=== PATIENT | female | born 1950 | race Caucasian/White ===

== ENCOUNTER 2021-04-15 04:18 | Outpatient (CLI) | payer BC, SELFPAY | END 2021-04-15 04:19 | disposition home or self-care (01) | LOC: DS 04:18 | PROVIDERS: PCP Internal Medicine; Visit Provider Dietitian, Registered ==

== ENCOUNTER 2021-06-03 11:50 | Outpatient (REF) | payer BC, SELFPAY | END 2021-06-03 11:51 | disposition home or self-care (01) | LOC: LBO 11:50 | PROVIDERS: PCP Internal Medicine; Visit Provider Nurse Practitioner Family ==

== ENCOUNTER 2021-06-03 17:18 | Outpatient (REF) | payer BC, SELFPAY ==
[2021-06-03 10:20] LABS: Source Nasal/Nares
[2021-06-03 11:14] LABS: COVID-19 PCR POSITIVE (Negative)
== END 2021-06-03 17:19 | disposition home or self-care (01) ==
LOC: LBN 17:18
PROVIDERS: PCP Internal Medicine; Visit Provider Nurse Practitioner Family
DX: Z20.822 Contact with and (suspected) exposure to COVID-19 (principal)
CPT/HCPCS: 87635

== ENCOUNTER 2022-11-12 12:49 | Outpatient (CLI) | payer BC, OTHER, SELFPAY ==
[2022-11-12 15:11] LABS: ALT 25 U/L (14-59); AST 17 U/L (15-37); Albumin 3.5 g/dL (3.4-5.0); Alkaline Phosphatase 80 U/L (46-116); Bilirubin, Direct 0.1 mg/dL (0.0-0.2); Bilirubin, Total 0.4 mg/dL (0.2-1.0); Total Protein 6.6 g/dL (6.4-8.2)
== END 2022-11-12 12:50 | disposition home or self-care (01) ==
LOC: LBO 12:52
PROVIDERS: PCP Internal Medicine; Visit Provider Nurse Practitioner
DX: Z79.899 Other long term (current) drug therapy (principal)
CPT/HCPCS: 36415; 80076

== ENCOUNTER 2023-03-09 04:45 | Outpatient (CLI) | payer OTHER, BC, SELFPAY ==
[2023-03-09 12:40] LABS: Abs Immature Grans 0.01 10^3/uL (0.0-0.06); Absolute Basophil Count 0.04 10^3/uL (0.0-0.2); Absolute Lymphocyte Count 1.85 10^3/uL (1.2-3.4); Absolute Monocyte Count 0.57 10^3/uL (0.1-0.8); Absolute Neutrophil Count 3.02 10^3/uL (1.2-6.7); Basophils % 0.7; Eosinophils % 1.8; HCT 36.4 % (36.0-46.0); HGB 12.3 g/dL (11.2-15.7); Immature Grans % 0.2; Lymphocytes % 33.1; MCH 32.6 pg (27.0-33.0); MCHC 33.8 % (32.0-36.0); MCV 97 fL (80-95); MPV 11.7 fL (8.0-11.0); Monocytes % 10.2; Platelet Count 204 10^3/uL (130-400); RBC 3.77 10^6/uL (3.93-5.22); RDW 12.8 % (11.7-14.6); RDW-SD 45.3 fL; WBC 5.59 10^3/uL (4.4-10.8)
[2023-03-09 12:41] LABS: ESR 2 mm/hr (0-30)
[2023-03-09 13:09] LABS: ALT 18 U/L (14-59); AST 17 U/L (15-37); Albumin 3.4 g/dL (3.4-5.0); Alkaline Phosphatase 84 U/L (46-116); Anion Gap 2.7 mmol/L (3-11); BUN 15 mg/dL (7-18); Bilirubin, Total 0.3 mg/dL (0.2-1.0); C-Reactive Protein 0.25 mg/dL (0.0-0.3); CO2 30.3 mmol/L (21.0-32.0); CREATININE 0.6 mg/dL (0.55-1.02); Calcium 8.8 mg/dL (8.5-10.1); Chloride 100 mmol/L (98-107); Glucose 92 mg/dL (74-106); Potassium 3.7 mmol/L (3.5-5.1); Sodium 133 mmol/L (136-145); Total Protein 6.9 g/dL (6.4-8.2)
== END 2023-03-09 04:46 | disposition home or self-care (01) ==
LOC: LBO 04:45
PROVIDERS: PCP Internal Medicine; Visit Provider Nurse Practitioner
DX: Z79.899 Other long term (current) drug therapy (principal); M19.91 Primary osteoarthritis, unspecified site
CPT/HCPCS: 36415; 80053; 85652; 85025; 86140

== ENCOUNTER 2023-07-28 20:03 | Outpatient (CLI) | payer OTHER, SELFPAY ==
[2023-07-28 15:40] LABS: Abs Immature Grans 0.02 10^3/uL (0.0-0.06); Absolute Basophil Count 0.04 10^3/uL (0.0-0.2); Absolute Eosinophil Count 0.06 10^3/uL (0.0-0.7); Absolute Lymphocyte Count 2.34 10^3/uL (1.2-3.4); Absolute Monocyte Count 0.46 10^3/uL (0.1-0.8); Absolute Neutrophil Count 3.02 10^3/uL (1.2-6.7); Basophils % 0.7 %; HCT 35.4 % (36.0-46.0); HGB 12.4 g/dL (11.2-15.7); Immature Grans % 0.3 %; Lymphocytes % 39.4 %; MCH 34.2 pg (27.0-33.0); MCV 98 fL (80-95); MPV 11.2 fL (8.0-11.0); Monocytes % 7.7 %; Neutrophils % 50.9 %; Platelet Count 202 10^3/uL (130-400); RBC 3.63 10^6/uL (3.93-5.22); RDW-SD 46.1 fL; WBC 5.94 10^3/uL (4.4-10.8)
[2023-07-28 15:42] LABS: ESR 2 mm/hr (0-30)
[2023-07-28 16:50] LABS: ALT 22 U/L (14-59); AST 16 U/L (15-37); Albumin 3.5 g/dL (3.4-5.0); Alkaline Phosphatase 93 U/L (46-116); Anion Gap 5.6 mmol/L (3-11); BUN 24 mg/dL (7-18); Bilirubin, Total 0.5 mg/dL (0.2-1.0); C-Reactive Protein < 0.50 mg/dL (<or=0.5); CO2 29.4 mmol/L (21.0-32.0); CREATININE 0.6 mg/dL (0.55-1.02); Calcium 8.5 mg/dL (8.5-10.1); Chloride 100 mmol/L (98-107); Glucose 86 mg/dL (74-106); Potassium 4.3 mmol/L (3.5-5.1); Sodium 135 mmol/L (136-145); Total Protein 6.4 g/dL (6.4-8.2)
== END 2023-07-28 20:04 | disposition home or self-care (01) ==
LOC: LBO 20:03
PROVIDERS: PCP Internal Medicine; Visit Provider Nurse Practitioner
DX: M19.09 Primary osteoarthritis, other specified site (principal); Z79.899 Other long term (current) drug therapy
CPT/HCPCS: 36415; 80053; 85652; 85025; 86140

== ENCOUNTER 2023-12-22 17:30 | Outpatient (CLI) | payer OTHER, SELFPAY ==
[2023-12-22 15:28] LABS: Abs Immature Grans 0.01 10^3/uL (0.0-0.06); Absolute Basophil Count 0.04 10^3/uL (0.0-0.2); Absolute Eosinophil Count 0.06 10^3/uL (0.0-0.7); Absolute Lymphocyte Count 2.57 10^3/uL (1.2-3.4); Absolute Monocyte Count 0.37 10^3/uL (0.1-0.8); Absolute Neutrophil Count 3.05 10^3/uL (1.2-6.7); Basophils % 0.7 %; HCT 35.9 % (36.0-46.0); HGB 12.4 g/dL (11.2-15.7); Immature Grans % 0.2 %; Lymphocytes % 42.1 %; MCH 33.2 pg (27.0-33.0); MCHC 34.5 % (32.0-36.0); MCV 96 fL (80-95); MPV 11.5 fL (8.0-11.0); Monocytes % 6.1 %; Neutrophils % 49.9 %; Platelet Count 202 10^3/uL (130-400); RBC 3.74 10^6/uL (3.93-5.22); RDW 12.6 % (11.7-14.6); RDW-SD 44.1 fL
[2023-12-22 15:30] LABS: ESR < 1 mm/hr (0-30)
[2023-12-22 15:43] LABS: ALT 23 U/L (14-59); AST 18 U/L (15-37); Albumin 3.4 g/dL (3.4-5.0); Alkaline Phosphatase 107 U/L (46-116); Anion Gap 4.3 mmol/L (3-11); BUN 22 mg/dL (7-18); Bilirubin, Total 0.36 mg/dL (0.2-1.0); CO2 30.7 mmol/L (21.0-32.0); CREATININE 0.6 mg/dL (0.55-1.02); Chloride 101 mmol/L (98-107); Glucose 92 mg/dL (74-106); Sodium 136 mmol/L (136-145); Total Protein 6.7 g/dL (6.4-8.2)
[2023-12-22 15:44] LABS: C-Reactive Protein < 0.50 mg/dL (<or=0.5)
== END 2023-12-22 17:31 | disposition home or self-care (01) ==
LOC: LBO 17:30
PROVIDERS: PCP Internal Medicine; Visit Provider Nurse Practitioner
DX: Z79.899 Other long term (current) drug therapy (principal); M19.90 Unspecified osteoarthritis, unspecified site
CPT/HCPCS: 36415; 80053; 85652; 85025; 86140

== ENCOUNTER 2024-07-05 12:13 | Outpatient (CLI) | payer OTHER, SELFPAY ==
[2024-07-05 12:35] LABS: Abs Immature Grans 0.01 10^3/uL (0.0-0.06); Absolute Basophil Count 0.04 10^3/uL (0.0-0.2); Absolute Eosinophil Count 0.07 10^3/uL (0.0-0.7); Absolute Lymphocyte Count 1.85 10^3/uL (1.2-3.4); Absolute Neutrophil Count 2.54 10^3/uL (1.2-6.7); Basophils % 0.8 %; Eosinophils % 1.4 %; HCT 36.1 % (36.0-46.0); HGB 12.3 g/dL (11.2-15.7); Immature Grans % 0.2 %; Lymphocytes % 37.7 %; MCH 33.3 pg (27.0-33.0); MCHC 34.1 % (32.0-36.0); MCV 98 fL (80-95); MPV 11.9 fL (8.0-11.0); Monocytes % 8.1 %; Neutrophils % 51.8 %; Platelet Count 203 10^3/uL (130-400); RBC 3.69 10^6/uL (3.93-5.22); RDW 12.7 % (11.7-14.6); RDW-SD 45.5 fL; WBC 4.91 10^3/uL (4.4-10.8)
[2024-07-05 12:37] LABS: ESR < 1 mm/hr (0-30)
[2024-07-05 12:59] LABS: ALT 23 U/L (14-59); AST 18 U/L (15-37); Albumin 3.5 g/dL (3.4-5.0); Alkaline Phosphatase 102 U/L (46-116); Anion Gap 5.6 mmol/L (3-11); BUN 19 mg/dL (7-18); Bilirubin, Total 0.5 mg/dL (0.2-1.0); CO2 29.4 mmol/L (21.0-32.0); CREATININE 0.5 mg/dL (0.55-1.02); Chloride 102 mmol/L (98-107); Estimated GFR 100.21 (mL/min/1.73m2); Glucose 80 mg/dL (74-106); Potassium 4.2 mmol/L (3.5-5.1); Sodium 137 mmol/L (136-145); Total Protein 6.8 g/dL (6.4-8.2)
[2024-07-05 13:03] LABS: C-Reactive Protein < 0.50 mg/dL (<or=0.5)
== END 2024-07-05 12:14 | disposition home or self-care (01) ==
LOC: LBO 12:14
PROVIDERS: PCP Internal Medicine; Visit Provider Nurse Practitioner
DX: M19.90 Unspecified osteoarthritis, unspecified site (principal); Z79.899 Other long term (current) drug therapy
CPT/HCPCS: 36415; 80053; 85652; 85025; 86140

== ENCOUNTER 2024-07-13 03:26 | Outpatient (CLI) | payer OTHER, SELFPAY ==
[2024-07-13 09:31] LABS: Cholesterol 182 mg/dL (<200); HDL Cholesterol 77 mg/dL (>or=50)
[2024-07-13 09:33] LABS: Triglyceride <25 mg/dL (<150)
[2024-07-13 09:46] LABS: LDL CHOLESTEROL 101 mg/dL (<100)
== END 2024-07-13 03:27 | disposition home or self-care (01) ==
LOC: LBO 03:26
PROVIDERS: PCP Internal Medicine; Visit Provider Internal Medicine
DX: E78.5 Hyperlipidemia, unspecified (principal)
CPT/HCPCS: 36415; 80061; 83721

== ENCOUNTER 2024-11-20 04:11 | Outpatient (CLI) | payer OTHER, SELFPAY ==
[2024-11-20 11:42] LABS: Abs Immature Grans 0.02 10^3/uL (0.0-0.06); HCT 37.1 % (36.0-46.0); HGB 12.0 g/dL (11.2-15.7); Immature Grans % 0.4 %; MCH 31.7 pg (27.0-33.0); MCHC 32.3 % (32.0-36.0); MCV 98 fL (80-95); MPV 11.3 fL (8.0-11.0); Platelet Count 211 10^3/uL (130-400); RBC 3.78 10^6/uL (3.93-5.22); RDW 13.0 % (11.7-14.6); RDW-SD 46.5 fL; WBC 5.08 10^3/uL (4.4-10.8)
[2024-11-20 11:49] LABS: ESR < 1 mm/hr (0-30)
[2024-11-20 12:13] LABS: ALT 22 U/L (14-59); AST 15 U/L (15-37); Albumin 3.5 g/dL (3.4-5.0); Alkaline Phosphatase 96 U/L (46-116); Anion Gap 5.0 mmol/L (3-11); BUN 19 mg/dL (7-18); Bilirubin, Total 0.5 mg/dL (0.2-1.0); CO2 30.0 mmol/L (21.0-32.0); Calcium 8.8 mg/dL (8.5-10.1); Chloride 103 mmol/L (98-107); Estimated GFR 99.59 (mL/min/1.73m2); Glucose 68 mg/dL (74-106); Potassium 4.2 mmol/L (3.5-5.1); Sodium 138 mmol/L (136-145); Total Protein 6.9 g/dL (6.4-8.2)
[2024-11-20 12:14] LABS: C-Reactive Protein < 0.50 mg/dL (<or=0.5)
== END 2024-11-20 04:12 | disposition home or self-care (01) ==
PROVIDERS: PCP Internal Medicine; Visit Provider Nurse Practitioner
DX: M19.90 Unspecified osteoarthritis, unspecified site (principal); Z79.899 Other long term (current) drug therapy
CPT/HCPCS: 36415; 80053; 85652; 85025; 86140